=== PATIENT | female | born 1970 | race Native Hawaiian/Other Pacific Islander ===

== ENCOUNTER 2022-10-13 14:22 | Emergency (ER) | payer OTHER ==
[~2022-10-13] VITALS: Ht 167.6 cm; Wt 59.9 kg
[2022-10-13 14:29] VITALS: BP 152/80; TEMP 98.2
== END 2022-10-13 15:09 | disposition home or self-care (01) ==
LOC: ED 14:22
DX: L25.9 Unspecified contact dermatitis, unspecified cause (principal); B88.0 Other acariasis
CPT/HCPCS: 99281

== ENCOUNTER 2022-11-08 17:36 | Emergency (ER) | payer OTHER ==
[~2022-11-08] VITALS: Ht 167.6 cm; Wt 63.5 kg
[2022-11-08 17:48] VITALS: BP 141/68; TEMP 97.3
[2022-11-08 18:26] LABS: PLATELET COUNT 199 K/uL (152-353)
[2022-11-08 18:46] LABS: POTASSIUM 3.9 mmol/L (3.6-5.2)
[2022-11-08 18:49] LABS: PARTIAL THROMBOPLASTIN TIME 29.8 SECONDS (23.9-36.7)
== END 2022-11-08 20:12 | disposition home or self-care (01) ==
LOC: ED 17:36
PROVIDERS: Family Medicine
DX: M94.0 Chondrocostal junction syndrome [Tietze] (principal); R07.81 Pleurodynia
CPT/HCPCS: 36415; 80053; 82550; 84484; 85027; 85610; 85730; 93005; 99283